=== PATIENT | female | born 1965 | race Caucasian/White ===

== ENCOUNTER → 2022-10-24 08:01 | Outpatient (CLI) | payer BC, OTHER, SELFPAY ==
--- NOTE | 2022-10-24 | DI.ECHO.S_ITS ---
[facility]---------+ [facility] +---------+ : : [address] : : : : [id number] : : : : Phone: [phone]---------+ Echocardiogram Report + + :Name: DIANA DAY Study Date: 10/24/2022 Height: 65 in : :[facility] ReadingLocation: Weight: 190 lb : : Gender: Female BSA: 1.9 m2 : :: 1965 Age: 57 yrs BP: 124/76 mmHg: :Reason For Study: dyspnea : : Performed By: Omayra Cheema : :Referring: KATARZYNA MCGRAW : + + Interpretation Summary The ejection fraction is estimated to be 65-70%. Diastolic parameters suggest probable normal left ventricular diastolic function and normal filling pressures. The right ventricle is normal in size and function. No significant valvular abnormalities. The right ventricular systolic pressure is estimated to be at least 19 mmHg based on an estimated right atrial pressure of 3 mm Hg. There is a trivial pericardial effusion noted. Procedure: A two-dimensional transthoracic echocardiogram with color flow and Doppler was performed. The study quality was technically adequate. There is no prior echocardiogram noted for this patient. The patient was in normal sinus rhythm during the exam. Left Ventricle: The left ventricle is normal in size and wall thickness. There is no thrombus. There is no ventricular septal defect visualized. The ejection fraction is estimated to be 65-70%. There are no focal wall motion abnormalities. Diastolic parameters suggest probable normal left ventricular diastolic function and normal filling pressures. Right Ventricle: The right ventricle is normal in size and function. Atria: Both atria are normal in size. There is no Doppler evidence for an interatrial shunt. Mitral Valve: The mitral valve is normal in structure and function. There is no mitral valve stenosis. There is trace mitral regurgitation. Aortic Valve: The aortic valve is trileaflet. The aortic valve opens well. There is no aortic valve stenosis. No aortic regurgitation is present. Tricuspid Valve: The tricuspid valve is normal in structure and function. There is a trace or physiologic amount of tricuspid regurgitation. The right ventricular systolic pressure is estimated to be at least 19 mmHg based on an estimated right atrial pressure of 3 mm Hg. Pulmonic Valve: The pulmonic valve is not well seen, but is grossly normal. There is no pulmonic valvular regurgitation. Great Vessels: The aortic root is normal size. The ascending aorta is normal in size. The aortic arch could not be visualized. The IVC is of normal diameter and collapses greater than 50% with a sniff. This suggests a low right atrial pressure of 3 mm Hg. Pericardium/ Pleura There is a trivial pericardial effusion noted. There is an anterior echo-free space consistent with a fat pad. There is no pleural effusion. MMode/2D Measurements & Calculations LVIDd: 4.1 cm LVOT diam: 2.0 cm LVIDs: 2.4 cm Ao root diam: 3.6 cm FS: 41.8 % asc Aorta Diam: 3.3 cm IVSd: 1.0 cm LVPWd: 0.87 cm LV art. diameter/BSA (cm/m^2): 2.1 LV sys. diameter/BSA (cm/m^2): 1.2 LA A2 area: 15.6 cm2 RA long axis: 5.5 cm LA A4 area: 12.8 cm2 RA area: 15.9 cm2 LA length (vol): 4.1 cm RA vol: 39.4 ml LA vol: 41.2 ml RA : 20.3 ml/m2 LA vol index: 21.3 ml/m2 IVC diam: 1.8 cm RVD1 (basal): 3.8 cm TAPSE: 2.0 cm Doppler Measurements & Calculations Ao V2 max: 141.2 cm/sec LVOT Max Preet: 111.3 cm/sec Ao V2 mean: 99.4 cm/sec LV V1 max P.0 mmHg Ao max P.0 mmHg LV V1 VTI: 26.1 cm Ao mean P.2 mmHg MARGARITA(I,D): 2.5 cm2 Ao V2 VTI: 32.5 cm MARGARITA(V,D): 2.4 cm2 sev ratio: 0.80 MARGARITA indexed to BSA (cm^2/m^2): 1.3 MV E max preet: 99.1 cm/sec TR max preet: 198.9 cm/sec MV A max preet: 76.1 cm/sec TR max P.8 mmHg MV E/A: 1.3 PA V2 max: 88.8 cm/sec Med Peak E' Preet: 11.5 cm/sec PA V2 mean: 66.6 cm/sec E/E' med: 8.6 PA mean P.9 mmHg Lat Peak E' Preet: 8.7 cm/sec PA pr(Accel): 0.22 mmHg E/E' lat: 11.4 E/e' average: 10.0 MV dec time: 0.19 sec SV(LVOT): 79.7 ml Reading Physician:02:23 PM
== END ==
PROVIDERS: Family Provider Family Medicine; PCP Family Medicine; Referring Provider Nurse Practitioner Acute Care; Visit Provider Nurse Practitioner Acute Care
DX: R06.09 Other forms of dyspnea (principal); I25.10 Atherosclerotic heart disease of native coronary artery without angina pectoris; Z72.0 Tobacco use
CPT/HCPCS: 93306

== ENCOUNTER → 2022-10-27 09:48 | Outpatient (CLI) | payer BC, OTHER, SELFPAY ==
--- NOTE | 2022-10-27 19:52 | DI.NM.S_ITS ---
DATE OF SERVICE: 10/27/2022 PROCEDURE PERFORMED: Exercise treadmill stress and rest myocardial perfusion imaging study with gating to assess ejection fraction and regional wall motion. ORDERING PROVIDER: PEYTON Hector INDICATIONS: The patient is a 57-year-old smoker with coronary calcification and exertional dyspnea. EXERCISE TREADMILL TESTING: The patient was able to exercise for a total of 3 minutes 21 seconds on a standard Hussein protocol, suggesting markedly reduced exercise capacity with an DAVEY of +47%, achieving 3.7 METS. She had a fairly accelerated, early heart rate response to exercise, achieving a maximum heart rate of 155 BPM (96% of her predicted maximum) and had a normal blood pressure response. She had no chest discomfort or other anginal symptoms. She had audible wheezing at peak exercise but O2 saturation remained at >91%. Her resting ECG shows sinus rhythm with normal ST segments. With stress, there are no significant ST-segment shifts or arrhythmias. At 2 minutes, 15 seconds of exercise and a heart rate of 144 BPM, 26.3 mCi of technetium-99m Myoview was injected and she was imaged 20 minutes later using a gated SPECT acquisition protocol. Earlier in the day while at rest, she had been injected with 12.4 mCi of technetium-99m Myoview was imaged 15 minutes later, again using a gated SPECT acquisition protocol. FINDINGS: 1. Raw data. There is fairly good myocardial tracer uptake without any significant motion artifact or breast attenuation artifact. Lung/heart ratio was normal at 0.28 with a normal TID ratio of 0.69. 2. Quantitated gated SPECT: Post-stress ejection fraction is estimated at 97%, likely an overestimate because of relatively small left ventricular volumes. The resting ejection fraction is 88% with a small resting end- diastolic volume of 56 mL. 3. Myocardial perfusion imaging: Post-stress supine images show a fairly normal myocardial perfusion pattern with a slight defect in the inferior wall that resolves on prone imaging, consistent with diaphragmatic attenuation artifact. The prone images show a normal, homogeneous perfusion pattern without any perfusion defects. The resting images show an identical perfusion pattern to that of the post- stress supine images without any areas of improvement. IMPRESSION: 1. Normal myocardial perfusion study for ischemia. 2. Mild, fixed inferior defect that resolves with prone imaging consistent with diaphragmatic attenuation artifact. There is no evidence for myocardial ischemia or previous myocardial infarction. 3. High normal left ventricular systolic function without focal wall motion abnormality and small left ventricular volumes. 4. Markedly reduced exercise capacity without angina or ECG evidence of ischemia. Prominent wheezing was noted at peak exercise, suggesting probable underlying lung disease but clinical correlation is recommended. Ara Gallardo - EDDIE/annabella/ doc#: [id number]/job#: [id number] dd: 10/27/2022 17:11:00 dt: 10/27/2022 19:30:00 DICTATING MD/COPIES TO: Richie Darby MD; PEYTON Hector; Daly Celaya, COPIES MNE: CHAPO;
== END ==
PROVIDERS: Family Provider Family Medicine; PCP Family Medicine; Referring Provider Nurse Practitioner Acute Care; Visit Provider Nurse Practitioner Acute Care
DX: I25.10 Atherosclerotic heart disease of native coronary artery without angina pectoris (principal); R06.09 Other forms of dyspnea; Z72.0 Tobacco use
CPT/HCPCS: 78452; 93017; A9502